=== PATIENT | female | born 1930 | race Asian ===

== ENCOUNTER 2018-03-18 17:40 | Emergency (ER) | payer MEDICAID ==
[~2018-03-18] VITALS: Ht 134.6 cm; Wt 38.6 kg
[2018-03-18 18:30] VITALS: BP 159/67
[2018-03-18 18:47] LABS: APPEARANCE,URINE CLEAR; BASOPHILS % (AUTO) 1.9 % (0.0-2.0); BILIRUBIN, URINE NEGATIVE (NEGATIVE); COLOR,URINE PALE YELLOW; EOSINOPHILS % (AUTO) 2.8 % (0.0-3.0); GLUCOSE, URINE (UA) NEGATIVE (NEGATIVE); HEMATOCRIT 43.2 % (37.0-47.0); HEMOGLOBIN 14.2 G/DL (12.0-16.0); KETONES,URINE NEGATIVE (NEGATIVE); LEUKOCYTE ESTERASE ,URINE 2+ (NEGATIVE); MEAN CORPUSCULAR VOLUME 94 FL (80-99); MONOCYTES % (AUTO) 13.2 % (1.0-10.0); NEUTROPHILS % (AUTO) 41.2 % (45.0-75.0); NITRITE,URINE NEGATIVE (NEGATIVE); PH,URINE 7 (4.5-8.0); PLATELET COUNT 197 K/UL (150-450); PROTEIN,URINE NEGATIVE (NEGATIVE); RED BLOOD COUNT 4.62 M/UL (4.20-5.40); RED CELL DISTRIBUTION WIDTH 11.9 % (11.6-14.8); UROBILINOGEN,URINE NORMAL MG/DL (0.0-1.0); WHITE BLOOD COUNT 7.1 K/UL (4.8-10.8)
[2018-03-18 19:04] LABS: ANION GAP 6 mmol/L (5-15); BLOOD UREA NITROGEN 12 mg/dL (7-18); CALCIUM 8.5 MG/DL (8.5-10.1); CARBON DIOXIDE 28 MMOL/L (21-32); CHLORIDE 106 MMOL/L (98-107); CREATININE 0.8 MG/DL (0.55-1.30); POTASSIUM 3.7 MMOL/L (3.5-5.1); SODIUM 140 MMOL/L (136-145)
--- NOTE | 2018-03-18 19:14 | Emergency Room Report ---
History of Present Illness General Chief Complaint: Back Pain-No Injury Source: Family Member Present Illness HPI Patient presents with complaints of severe low back pain Patient reports that over the past one to 2 days she has increased pain where she has been unable to ambulate Denies any obvious fall or trauma Denies any chest pain or short of breath Patient also feels weakness in both lower extremities Denies any dysuria frequency denies any fevers or chills Allergies: Coded Allergies: No Known Allergies (Unverified , 03/18/18) Patient History Past Medical History: see triage record Pertinent Family History: none Last Menstrual Period: Post Reviewed Nursing Documentation: PMH: Agreed; PSxH: Agreed Nursing Documentation-PMH Hx Hypertension: Yes Review of Systems All Other Systems: negative except mentioned in HPI Physical Exam Vital Signs Date Time Temp Pulse Resp B/P (MAP) Pulse Ox O2 Delivery O2 Flow Rate FiO2 03/18/18 17:53 Room Air 03/18/18 18:30 60 16 159/67 98 Sp02 EP Interpretation: reviewed, normal General Appearance: no apparent distress Head: normocephalic, atraumatic Eyes: bilateral eye PERRL, bilateral eye EOMI ENT: normal pharynx Neck: full range of motion, supple Respiratory: lungs clear Cardiovascular #1: regular rate, rhythm, no edema Gastrointestinal: non tender, soft Musculoskeletal: other - Patient has increased discomfort paraspinal diffuse E throughout the L-spine region, able to leg raise however has increased pain with 30 flexion of the hip Neurologic: alert, oriented x3 Skin: normal color, no rash Lymphatic: no adenopathy Medical Decision Making Diagnostic Impression: Primary Impression: Multiple fractures of thoracic spine Additional Impression: Spinal stenosis of lumbar region at multiple levels ER Course Patient's presentation is concerning for multiple differentials Including but not limited to neurological, neurosurgical, infectious, possible skeletal Patient's imaging study shows multiple levels of compression fractures Blood work reveals mildly elevated creatinine level Patient requiring further inpatient care and specialty consultation Patient transfers secondary to insurance purposes for continued care Labs Test 03/18/18 18:30 White Blood Count 7.1 K/UL (4.8-10.8) Red Blood Count 4.62 M/UL (4.20-5.40) Hemoglobin 14.2 G/DL (12.0-16.0) Hematocrit 43.2 % (37.0-47.0) Mean Corpuscular Volume 94 FL (80-99) Mean Corpuscular Hemoglobin 30.7 PG (27.0-31.0) Mean Corpuscular Hemoglobin Concent 32.8 G/DL (32.0-36.0) Red Cell Distribution Width 11.9 % (11.6-14.8) Platelet Count 197 K/UL (150-450) Mean Platelet Volume 6.5 FL (6.5-10.1) Neutrophils (%) (Auto) 41.2 % (45.0-75.0) Lymphocytes (%) (Auto) 41.0 % (20.0-45.0) Monocytes (%) (Auto) 13.2 % (1.0-10.0) Eosinophils (%) (Auto) 2.8 % (0.0-3.0) Basophils (%) (Auto) 1.9 % (0.0-2.0) Urine Color Pale yellow Urine Appearance Clear Urine pH 7 (4.5-8.0) Urine Specific [place] 1.005 (1.005-1.035) Urine Protein Negative (NEGATIVE) Urine Glucose (UA) Negative (NEGATIVE) Urine Ketones Negative (NEGATIVE) Urine Occult Blood 3+ (NEGATIVE) Urine Nitrite Negative (NEGATIVE) Urine Bilirubin Negative (NEGATIVE) Urine Urobilinogen Normal MG/DL (0.0-1.0) Urine Leukocyte Esterase 2+ (NEGATIVE) Urine RBC 0-2 /HPF (0 - 2) Urine WBC 2-4 /HPF (0 - 2) Urine Squamous Epithelial Cells Occasional /LPF Urine Bacteria None /HPF (NONE) Sodium Level 140 MMOL/L (136-145) Potassium Level 3.7 MMOL/L (3.5-5.1) Chloride Level 106 MMOL/L (98-107) Carbon Dioxide Level 28 MMOL/L (21-32) Anion Gap 6 mmol/L (5-15) Blood Urea Nitrogen 12 mg/dL (7-18) Creatinine 0.8 MG/DL (0.55-1.30) Estimat Glomerular Filtration Rate mL/min (>60) Glucose Level 96 MG/DL (74-106) Calcium Level 8.5 MG/DL (8.5-10.1) Total Bilirubin 1.6 MG/DL (0.2-1.0) Direct Bilirubin 0.3 MG/DL (0.0-0.3) Aspartate Amino Transf (AST/SGOT) 21 U/L (15-37) Alanine Aminotransferase (ALT/SGPT) 13 U/L (12-78) Alkaline Phosphatase 66 U/L (46-116) Total Creatine Kinase 34 U/L (26-308) Creatine Kinase MB 0.6 NG/ML (0.0-3.6) Creatine Kinase MB Relative Index 1.7 Troponin I 0.001 ng/mL (0.000-0.056) Total Protein 7.5 G/DL (6.4-8.2) Albumin 3.3 G/DL (3.4-5.0) Globulin 4.2 g/dL Albumin/Globulin Ratio 0.8 (1.0-2.7) EKG Diagnostic Results Rate: normal Rhythm: NSR ST Segments: other - Nonspecific ST and T-wave changes Rhythm Strip Diag. Results EP Interpretation: yes Rate: 66 Rhythm: NSR, no PVC's, no ectopy Chest X-Ray Diagnostic Results Chest X-Ray Diagnostic Results : Chest X-Ray Ordered: Yes # of Views/Limited/Complete: 1 View Indication: Chest Pain EP Interpretation: Yes Interpretation: no consolidation, no pneumothorax, other - Abnormal mediastinal, positional factor left lower lobe effusion Impression: Other - Abnormal mediastinum bilateral small effusions Electronically Signed by: Dipika Bauer DO CT/MRI/US Diagnostic Results CT/MRI/US Diagnostic Results : Impression CT L-spine: T11 moderate and T12 severe compression fractures, moderate L1 and L2 compression fractures severe L4 and moderate L5 compression fractures the thoracic or lumbar vertebral compression fractures appear indeterminate in age 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
[2018-03-18 19:19] LABS: ALANINE AMINOTRANSFERASE 13 U/L (12-78); ALBUMIN 3.3 G/DL (3.4-5.0); ALBUMIN/GLOBULIN RATIO 0.8 (1.0-2.7); ALKALINE PHOSPHATASE 66 U/L (46-116); ASPARTATE AMINO TRANSFERASE 21 U/L (15-37); BILIRUBIN,TOTAL 1.6 MG/DL (0.2-1.0); CKMB 0.6 NG/ML (0.0-3.6); CREATINE KINASE 34 U/L (26-308)
[2018-03-18 19:21] LABS: BILIRUBIN,DIRECT 0.3 MG/DL (0.0-0.3)
[2018-03-18 22:00] VITALS: BP 132/78
--- NOTE | 2018-03-19 10:04 | Diagnostic Imaging Report ---
Indication: Back pain Technique: Continuous helical transaxial imaging of the lumbar spine was obtained from the lung bases to the pubic symphysis. No IV contrast was administered. Coronal 2-D reformats were also obtained. Study obtained in a Siemens sensation [address] 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 There are multiple compression fracture deformities of the visualized lower thoracic and lumbar vertebra mostly moderate to severe in degree. There are no definite acute fractures identified on this examination but given the degree of deformity present, it would be difficult to exclude acute on chronic injury. In addition there are degenerative changes present with endplate and facet spur formation at multiple levels. Vacuum disc phenomena also noted several levels. There is no obvious soft tissue swelling. Aortoiliac calcifications are present. Vacuum phenomenon noted within the sacroiliac joints bilaterally. 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 Moderate superimposed degenerative disease. No obvious acute injury. If there is strong clinical suspicion for acute injury recommend MRI which is better for assessment of acuity. [facility] has communicated the preliminary results to the Emergency Department. Their findings are largely concordant with this report. The CT scanner at [facility] is accredited by the [employer] and the scans are performed using dose optimization techniques as appropriate to a performed exam including Automatic Exposure control.
--- NOTE | 2018-03-19 10:10 | Diagnostic Imaging Report ---
Indication: Abdominal pain Technique: Continuous helical transaxial imaging of the pelvis was obtained from the iliac crest to the pubic symphysis. Coronal 2-D reformats were also obtained. Study obtained in a Siemens sensation [address] Intravenous non-ionic contrast was administered. Total Dose length Product (DLP): 497.[address] Dose Index Volume (CTDIvol): 10.03,8.62 mGy Comparison: None Findings: Generalized osteopenia demonstrated. No obvious acute fracture is identified. No malalignment seen. Vacuum phenomena and osteophyte formation involving the sacroiliac joints and both hips noted. Atrophic uterus demonstrated. Urinary bladder is mostly nondistended. Normal appendix noted. IMPRESSION: No acute injury appreciated. Other incidental findings as above The CT scanner at [facility] is accredited by the [employer] and the scans are performed using dose optimization techniques as appropriate to a performed exam including Automatic Exposure control.
--- NOTE | 2018-03-19 11:34 | Diagnostic Imaging Report ---
Indication: Chest pain Comparison: None A single view chest radiograph was obtained. Findings: No definite infiltrate or pulmonary vascular congestion identified. The heart is enlarged. The aorta is mildly enlarged consistent with atherosclerotic vascular disease. The bones are osteopenic. Impression: No acute disease
--- NOTE | 2018-03-19 16:41 | Cardiology Report ---
APPROVED REPORT EKG Measurement Heart [id number] Sinus rhythm with 1st degree AV block Otherwise normal ECG
== END 2018-03-18 22:00 | disposition short-term general hospital (02) ==
LOC: EMR 19:25 → CANBEDREQ 22:31
DX: M48.061 Spinal stenosis, lumbar region without neurogenic claudication (principal); M85.80 Other specified disorders of bone density and structure, unspecified site; I10 Essential (primary) hypertension; S22.080A Wedge compression fracture of T11-T12 vertebra, initial encounter for closed fracture; S32.010A Wedge compression fracture of first lumbar vertebra, initial encounter for closed fracture; S32.020A Wedge compression fracture of second lumbar vertebra, initial encounter for closed fracture; S32.040A Wedge compression fracture of fourth lumbar vertebra, initial encounter for closed fracture; S32.050A Wedge compression fracture of fifth lumbar vertebra, initial encounter for closed fracture; X58.XXXA Exposure to other specified factors, initial encounter; I51.7 Cardiomegaly
CPT/HCPCS: 36415; 71045; 72131; 72192; 80053; 81003; 82248; 82550; 82553; 84484; 85025; 93005; 99285

== ENCOUNTER 2018-11-21 21:12 | Emergency (ER) | payer MEDICAID ==
[~2018-11-21] VITALS: Ht 134.6 cm; Wt 40.8 kg
[2018-11-21 21:18] VITALS: BP 169/85
--- NOTE | 2018-11-21 21:18 | NUR ---
ED Nurse Note: pt walked in ED c/o nausea and vomiting x3, pt states she took a bath for about an hour and after coming out she felt nauseous and dizzy, denies any injury or fall. Pt AA&ox4, gcs=15, skin warm and dry, resp even and unlabored, +n, v/d, will cont monitor. nsr on color television console monitor. vss. grandkids at bedside.
[2018-11-21] MEDS ORDERED: Sodium Chloride 500ML 500 ML IV ONE (21:29)
[2018-11-21] MEDS ORDERED: DiphenhydrAMINE 50mg/ml Inj IVP ONE (21:30)
--- NOTE | 2018-11-21 21:58 | NUR ---
ED Nurse Note: pt off to CT
[2018-11-21 22:00] VITALS: BP 130/75
[2018-11-21 22:01] LABS: BASOPHILS % (AUTO) 1.1 % (0.0-2.0); EOSINOPHILS % (AUTO) 1.4 % (0.0-3.0); HEMATOCRIT 41.3 % (37.0-47.0); HEMOGLOBIN 13.7 G/DL (12.0-16.0); LYMPHOCYTES % (AUTO) 24.8 % (20.0-45.0); MEAN CORPUSCULAR VOLUME 98 FL (80-99); MONOCYTES % (AUTO) 9.7 % (1.0-10.0); NEUTROPHILS % (AUTO) 62.9 % (45.0-75.0); PLATELET COUNT 199 K/UL (150-450); RED CELL DISTRIBUTION WIDTH 12.8 % (11.6-14.8); WHITE BLOOD COUNT 8.1 K/UL (4.8-10.8)
[2018-11-21 22:08] LABS: ANION GAP 8 mmol/L (5-15); BLOOD UREA NITROGEN 22 mg/dL (7-18); CALCIUM 9.1 MG/DL (8.5-10.1); CARBON DIOXIDE 27 MMOL/L (21-32); CHLORIDE 107 MMOL/L (98-107); CREATININE 0.9 MG/DL (0.55-1.30); POTASSIUM 3.7 MMOL/L (3.5-5.1); SODIUM 142 MMOL/L (136-145)
[2018-11-21 22:22] LABS: ALANINE AMINOTRANSFERASE 17 U/L (12-78); ALBUMIN 3.6 G/DL (3.4-5.0); ALKALINE PHOSPHATASE 63 U/L (46-116); ASPARTATE AMINO TRANSFERASE 21 U/L (15-37); CKMB 0.8 NG/ML (0.0-3.6); CREATINE KINASE 50 U/L (26-308)
--- NOTE | 2018-11-21 22:35 | NUR ---
ED Nurse Note: pt came back from Ct, will cont monitor. placed on cardiac rehabilitation program director, family at bedside.
[2018-11-21 23:00] VITALS: BP 114/62
--- NOTE | 2018-11-22 00:20 | Emergency Room Report ---
History of Present Illness General Chief Complaint: Nausea Source: Patient, Family Member Present Illness HPI Patient presents with initially was reported as headache however patient adamantly reports increased nausea and dizziness Patient reports that she took an extra long bath earlier today and as she came out of it she had increased nausea Vomited several times and felt dizzy denies any fevers denies any neck pain denies any chest pain or shortness of breath She has some mild epigastric discomfort but denies any lower abdominal pain Denies any fall or trauma Allergies: Coded Allergies: No Known Allergies (Unverified , 11/21/18) Patient History Past Medical History: see triage record Pertinent Family History: none Reviewed Nursing Documentation: PMH: Agreed; PSxH: Agreed Nursing Documentation-PMH Hx Hypertension: Yes Review of Systems All Other Systems: negative except mentioned in HPI Physical Exam Vital Signs Date Time Temp Pulse Resp B/P (MAP) Pulse Ox O2 Delivery O2 Flow Rate FiO2 11/21/18 21:16 67 18 165/85 96 Room Air 11/21/18 21:18 97.0 Sp02 EP Interpretation: reviewed, normal General Appearance: well appearing, no apparent distress Head: normocephalic, atraumatic Eyes: bilateral eye PERRL, bilateral eye EOMI ENT: hearing grossly normal, normal pharynx, TMs + canals normal, uvula midline , other - Poor dentition Neck: full range of motion, supple, no meningismus, no bony tend Respiratory: lungs clear, normal breath sounds, no rhonchi, no respiratory distress, no retraction, no accessory muscle use Cardiovascular #1: normal peripheral pulses, regular rate, rhythm, no edema, no gallop, no JVD, no murmur Gastrointestinal: normal bowel sounds, non tender, soft, no mass, no organomegaly, non-distended, no guarding, no hernia, no pulsatile mass, no rebound Genitourinary: no CVA tenderness Musculoskeletal: normal inspection Neurologic: oriented x3, responsive, 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 as tested, motor strength/ tone normal, sensory intact Psychiatric: mood/affect normal Skin: normal color, no rash, warm/dry, palpation normal Lymphatic: normal inspection, no adenopathy Medical Decision Making Diagnostic Impression: Primary Impression: Nausea and vomiting in adult patient Additional Impression: Weakness ER Course Patient is a fairly complex patient with multiple differential to consideration including but not limited to cardiac cardiopulmonary and vascular emergencies Intracranial pathology also entertained Patient CT head did not show any acute disease blood work all at baseline levels Patient was provided with antiemetics as well given her age and comorbidities patient requested for admission secondary to insurance purposes Is requested for transfer Labs Test 11/21/18 21:50 White Blood Count 8.1 K/UL (4.8-10.8) Red Blood Count 4.20 M/UL (4.20-5.40) Hemoglobin 13.7 G/DL (12.0-16.0) Hematocrit 41.3 % (37.0-47.0) Mean Corpuscular Volume 98 FL (80-99) Mean Corpuscular Hemoglobin 32.6 PG (27.0-31.0) Mean Corpuscular Hemoglobin Concent 33.1 G/DL (32.0-36.0) Red Cell Distribution Width 12.8 % (11.6-14.8) Platelet Count 199 K/UL (150-450) Mean Platelet Volume 6.3 FL (6.5-10.1) Neutrophils (%) (Auto) 62.9 % (45.0-75.0) Lymphocytes (%) (Auto) 24.8 % (20.0-45.0) Monocytes (%) (Auto) 9.7 % (1.0-10.0) Eosinophils (%) (Auto) 1.4 % (0.0-3.0) Basophils (%) (Auto) 1.1 % (0.0-2.0) Sodium Level 142 MMOL/L (136-145) Potassium Level 3.7 MMOL/L (3.5-5.1) Chloride Level 107 MMOL/L (98-107) Carbon Dioxide Level 27 MMOL/L (21-32) Anion Gap 8 mmol/L (5-15) Blood Urea Nitrogen 22 mg/dL (7-18) Creatinine 0.9 MG/DL (0.55-1.30) Estimat Glomerular Filtration Rate mL/min (>60) Glucose Level 152 MG/DL (74-106) Calcium Level 9.1 MG/DL (8.5-10.1) Total Bilirubin 1.0 MG/DL (0.2-1.0) Aspartate Amino Transf (AST/SGOT) 21 U/L (15-37) Alanine Aminotransferase (ALT/SGPT) 17 U/L (12-78) Alkaline Phosphatase 63 U/L (46-116) Total Creatine Kinase 50 U/L (26-308) Creatine Kinase MB 0.8 NG/ML (0.0-3.6) Creatine Kinase MB Relative Index 1.6 Troponin I 0.013 ng/mL (0.000-0.056) Total Protein 7.3 G/DL (6.4-8.2) Albumin 3.6 G/DL (3.4-5.0) Globulin 3.7 g/dL Albumin/Globulin Ratio 1.0 (1.0-2.7) EKG Diagnostic Results Rate: normal Rhythm: NSR ST Segments: no acute changes Rhythm Strip Diag. Results EP Interpretation: yes Rate: 80 Rhythm: NSR, no PVC's, no ectopy Chest X-Ray Diagnostic Results Chest X-Ray Diagnostic Results : Chest X-Ray Ordered: Yes # of Views/Limited/Complete: 1 View Indication: Chest Pain EP Interpretation: Yes Interpretation: no consolidation, no effusion, no pneumothorax Impression: No acute disease Electronically Signed by: Dipika Bauer DO CT/MRI/US Diagnostic Results CT/MRI/US Diagnostic Results : Impression CT head no acute disease Last Vital Signs Date Time Temp Pulse Resp B/P (MAP) Pulse Ox O2 Delivery O2 Flow Rate FiO2 11/21/18 23:00 97.2 68 16 114/62 100 Room Air Status: improved Disposition: XFER SHT-TRM HOSP Condition: Serious Referrals: [facility],REFERR[facility] (PCP) Dipika Bauer DO Nov 22, 2018 00:20
--- NOTE | 2018-11-22 01:00 | NUR ---
ED Nurse Note: pt states nausea is better with medication, no pain at this time, will cont monitor. vss. airway intact.
[2018-11-22 01:10] VITALS: BP 119/58
--- NOTE | 2018-11-22 01:15 | NUR ---
ED Nurse Note: pt provided w/ bedside commode, blanket provide for comfort. bed lowest position w/ siderail x2.
--- NOTE | 2018-11-22 01:53 | NUR ---
ED Nurse Note: report given to JOLENE Cruz from [facility].
[2018-11-22 02:01] VITALS: BP 115/68
--- NOTE | 2018-11-22 02:03 | NUR ---
ED Nurse Note: ambulance at the bedside for transport, vss, airway intact, resp even and unlabored, no neuro changes, family at the bedside.
== END 2018-11-22 02:15 | disposition short-term general hospital (02) ==
LOC: EMR 21:36
DX: R11.2 Nausea with vomiting, unspecified (principal); R53.1 Weakness; I10 Essential (primary) hypertension
CPT/HCPCS: 36415; 70450; 71045; 80053; 82550; 82553; 84484; 85025; 96374; 96375; 96376; 99284; J1200; J2405; J7040